=== PATIENT | male | born 1990 | race Caucasian/White ===

== ENCOUNTER 2021-10-29 20:34 | Emergency (ER) | payer OTHER ==
[~2021-10-29] VITALS: Ht 177.8 cm; Wt 68.2 kg
[2021-10-29 20:39] VITALS: BP 146/82; TEMP 98.5
[2021-10-29 22:01] VITALS: PULSE 95
== END 2021-10-29 22:02 | disposition home or self-care (01) ==
LOC: COL.ER 20:34
DX: S61.412A Laceration without foreign body of left hand, initial encounter (principal); F17.220 Nicotine dependence, chewing tobacco, uncomplicated; W26.8XXA Contact with other sharp object(s), not elsewhere classified, initial encounter